=== PATIENT | male | born 1960 | race Caucasian/White ===

== ENCOUNTER 2016-05-21 04:34 | Inpatient (IN) | payer OTHER ==
[2016-05-21] VITALS (7 sets, daily range): BP systolic 116–165; BP diastolic 53–70
[~2016-05-21] VITALS: Ht 185.4 cm; Wt 122.0 kg
--- NOTE | 2016-05-21 09:15 | CONSULTATION REPORT ---
DATE OF CONSULTATION: 05/21/2016 CHIEF COMPLAINT: 1. Abdominal pain HISTORY OF PRESENT ILLNESS: The patient is a 55-year-old male who, approximately 1 week ago, developed severe right upper quadrant abdominal pain that doubled him over. Apparently this was associated with nausea, but no vomiting. Over a 4-hour period of time he got much better. He saw his primary care provider, who began a workup, that he has not completed yet. The patient developed further right upper quadrant abdominal pain. No fever, but felt chilled. He states that his urine has gotten darker, but it was cleared. Yesterday prior to admission, at noon, the pain worsened, radiating into his lower back. He went to [facility] in [place], where he felt that the wait was too long and then went to [place], where he was evaluated in their emergency department. In their emergency department, an ultrasound showed cholelithiasis, a slight thickening of the gallbladder wall, pericholecystic fluid, consistent with acute cholecystitis. His white count was 12.3, hemoglobin and hematocrit 14.2 and 42.8 respectively. His total bilirubin was 0.9, alkaline phosphatase 105, SGOT slightly elevated at 143, SGPT slightly elevated at 108. His lipase was elevated at 624. The hospital in [place] did not have beds available. [facility] were asked to accept the patient in transfer. He was transferred to [facility] and scheduled for urgent surgery. MEDICAL/SURGICAL HISTORY: Significant for lap gastric sleeve for weight reduction. He is status post tonsillectomy, adenoidectomy, bilateral knee arthroscopies, right open shoulder. He carries also a diagnosis of hypertension, diabetes, and hypercholesterolemia. He is followed by Dr. Umanzor in [place]. MEDICATIONS: 1. Include lisinopril 10 mg daily. 2. Omeprazole 20 mg daily. 3. Canagliflozin 100 mg daily. 4. Simvastatin 40 mg daily. ALLERGIES: 1. NONE. SOCIAL HISTORY: He is . He has 1 son, 2 daughters. They are in good health. He does not smoke, drinks alcohol on occasion. Drinks 2 cups of coffee per week. Does not use recreational drugs. Occupation: regional sales engineer. FAMILY HISTORY: Mother at age 60 from cancer, metastatic disease, primary unknown. Father , age 75, complications of CVAs. The patient was on dialysis for renal failure. One sister, who he does not know her whereabouts or her health. REVIEW OF SYSTEMS: No history of hepatitis, jaundice, rheumatic fever, blood transfusion, heart murmurs requiring antibiotics, or bleeding tendencies. A 12-point review of systems is negative. PHYSICAL EXAMINATION: GENERAL: The patient does not appear to be in acute distress. He is awake, alert , conversant. VITAL SIGNS: Blood pressure is 116/69, pulse 64, respirations 18, temperature is 97.3. HEENT: Normocephalic, atraumatic. Pupils equal and reactive. No scleral icterus. External auditory canals clear. No nasal septal defect or discharge. Throat is clear. Moist mucous membranes. NECK: Supple. No JVD, carotid bruit or adenopathy. LUNGS: Clear. No rales, rhonchi or wheezing. HEART: Regular rhythm. No murmurs. ABDOMEN: Nondistended. Hypoactive bowel sounds. The patient is tender to deep palpation in the right upper quadrant. No masses appreciable. EXTREMITIES: Full range of motion, actively, passively. No pretibial or ankle edema. SKIN: Warm and dry with no peripheral cyanosis, no evidence of icterus. LYMPHATICS: No cervical, supraclavicular, axillary, or groin adenopathy. NEUROLOGIC: The patient is grossly intact, with no focal motor neurological deficits. IMPRESSION: 1. Gallstone pancreatitis PLAN: Laparoscopic cholecystectomy. The procedure has been explained to the patient, including the potential risks of incisional site hernia, infection, conversion to open procedure, hemorrhage, transfusion, major ductal damage requiring rerouting of the small intestine to the liver, retained stone, exacerbation of pancreatitis, bile leak, damage to local structures secondary to his prior surgery, and inflammatory process of acute cholecystitis. The patient understands and agrees to proceed, and at this point all questions have been answered to his satisfaction. We will schedule him urgently.
--- NOTE | 2016-05-21 14:05 | DIAGNOSTIC IMAGING REPORT ---
PROCEDURE: XR INTRAOPERATIVE LAP JOS INDICATION: INTRAOP CHOLANGIOGRAM TECHNIQUE: Intraoperative fluoroscopy provided for Dr. Arenas performing an intraoperative cholangiogram following cholecystectomy. Total fluoroscopy time 2 minutes 38 seconds. Cumulative dose 66.4 mGy. COMPARISON: None. FINDINGS: Six intraoperative fluoroscopic spot images of the right upper quadrant of the abdomen. Initial views demonstrate blunting of the distal CBD without contrast in the small bowel consistent with the distal calculus. Subsequent images demonstrate balloon dilation and last image demonstrates of five contrast into the duodenum. IMPRESSION: 1. Distal CBD calculus with balloon dilation of the CBD. Last image demonstrates normal flow of contrast in the duodenum without residual filling defect.
[2016-05-21] MEDS ORDERED: INVOKANA100 MG (19:39)
[2016-05-21] MEDS ORDERED: LISINOPRIL10 MG PO (19:40)
[2016-05-21] MEDS ORDERED: SIMVASTATIN40 MG PO (19:42)
--- NOTE | 2016-05-21 23:07 | Consultation Report ---
Admission Admit Date 05/21/16 History Chief Complaint Acut cholecystits--SP Lap Brigitte. Underlying hypertension, AODM and hyperlipidemia History of Present Illness Dr. Arenas has asked hospitalist service to see pt. after cholcystectomy to help manage BP and DM. Social History Details of PMhx, P surgHx, Family Hx, Social Hx, Allergies, Meds recoreded in Dr. Arenass admit note and reviewed. Medications and Allergies Medications Current Medications Sig/Alana Start time Last Medication Dose Route Stop Time Status Admin Al Hydrox/Mg Hydrox/ 30 ML Q4H PRN 05/22 1530 AC 05/22 Simethicone PO 1530 Insulin Human Lispro See Dose ACHS 05/22 0730 AC Insts (1) SC Lisinopril 20 MG QHS 05/21 2200 AC 05/22 PO 2110 Meperidine HCl 25 MG Q1H PRN 05/21 2115 AC 05/23 IV 0747 Lactated Ringer's 1,000 ML ASDIRECTED 05/21 1115 AC 05/23 IV 0306 Ondansetron HCl 4 MG Q4H PRN 05/21 1115 AC IV Dose Instructions: (1)Insulin Human Lispro: LOW DOSE: ACCUCHECK AND SLIDING SCALE >>To change sliding scale DISCONTINUE this order and enter a NEW order. Thanks< Allergies Coded Allergies: NKA (05/21/16) Review of Systems Other pt. having sig pain following sjurgery. Able to ambulate. Taking po fluids without N or V. Physical Exam Vital Signs / I&Os Vital Signs Date Time Temp Pulse Resp B/P Pulse O2 O2 Flow FiO2 Ox Delivery Rate 05/21 2100 2.0 05/21 1829 78 18 165/70 98 0.0 05/21 1630 Nasal 2.0 Cannula 05/21 1556 79 18 130/58 97 Nasal 2.0 Cannula 05/21 1520 79 18 132/56 97 Nasal 2.0 Cannula 05/21 1457 97.5 74 18 135/57 96 Nasal 2.0 Cannula 05/21 1441 69 18 139/61 92 Nasal 2.0 Cannula 05/21 1429 65 15 130/62 98 Nasal 3.0 Cannula 05/21 1425 98.4 65 16 130/62 98 Nasal 3.0 Cannula 05/21 1420 72 10 136/57 97 Nasal 3.0 Cannula 05/21 1415 73 11 131/63 98 Nasal 3.0 Cannula 05/21 1410 71 12 127/62 97 Nasal 3.0 Cannula 05/21 1405 69 15 136/59 98 Nasal 3.0 Cannula 05/21 1400 66 18 130/66 98 Nasal 3.0 Cannula 05/21 1355 67 12 132/59 97 Nasal 3.0 Cannula 05/21 1350 71 16 120/47 98 Nasal 3.0 Cannula 05/21 1345 98.2 72 15 120/47 96 Nasal 3.0 Cannula 05/21 0545 Room Air 05/21 0533 97.3 64 18 116/69 97 Room Air General Appearance Alert, Oriented X3, Mild distress Lungs Clear to auscultation, Normal air movement Cardiovascular Regular rate and rhythm, Normal S1 and S2, No murmurs, gallops, rubs Abdomen mod tenderness upper abd. BTS decreased. Extremities No cyanosis, No clubbing, No edema LAB Results Laboratory Tests 05/21 0640 Chemistry Total Bilirubin (0.0 - 1.0 mg/dL) 2.4 Alkaline Phosphatase (46 - 116 U/L) 146 Lipase (73 - 393 U/L) 245 Hematology WBC (4.5 - 11.5 K/uL) 7.8 RBC (4.50 - 5.90 M/uL) 4.84 Hgb (13.5 - 17.5 gm/dL) 13.7 Hct (41.0 - 53.0 %) 41.9 MCV (80 - 100 fL) 87 MCH (26 - 34 pg) 28 RDW (11.6 - 14.8 %) 13.4 Neut % (Auto) (50 - 75 %) 79.9 Lymph % (Auto) (25 - 40 %) 9.8 [place] % (Auto) (3 - 14 %) 10.1 Eos % (Auto) (0 - 4 %) 0.2 Baso % (Auto) (0 - 2 %) 0 Plt Count, EDTA (150 - 400 K/uL) 192 PUBS MCHC (31 - 37 g/dL) 33 Assessment and Plan Problem List 1. Hypertension Plan will restart lisinopril atr 20 mg daily. 2. Type 2 diabetes mellitus, controlled Plan accucheheckd q 4h with low dose SS insulin.
[2016-05-22 03:50] VITALS: BP 134/71
[2016-05-22 06:20] VITALS: BP 130/70
[2016-05-22 09:58] VITALS: BP 121/70
[2016-05-22 14:00] VITALS: BP 136/73
--- NOTE | 2016-05-22 14:09 | OPERATIVE REPORT ---
DATE OF SURGERY: 05/21/2016 SURGEON: Nav Arenas III, MD ANIMAL TECHNICIAN: None. PREOPERATIVE DIAGNOSES: 1. Gallstone pancreatitis 2. Cholecystitis 3. Choledocholithiasis POSTOPERATIVE DIAGNOSES: 1. Gallstone pancreatitis 2. Cholecystitis 3. Choledocholithiasis PROCEDURES PERFORMED: 1. Laparoscopic lysis of adhesions 2. Fluoroscopic intraoperative cholangiogram 3. Common bile duct exploration 4. Cholecystectomy ANESTHESIA: General endotracheal. ESTIMATED BLOOD LOSS: 150 mL. FLUIDS: 700 mL lactated Ringer's. DRAINS: Mert-Hobbs drain 10 mm left behind. PATHOLOGY SPECIMEN: Gallbladder and contents. INDICATIONS: The patient is a 55-year-old male who approximately 6 years ago underwent a laparoscopic gastric sleeve for bariatric surgery. The patient does not know whether they did an ultrasound prior to his surgery or not. The patient presented to the emergency department in [place] with acute onset right upper quadrant abdominal pain, nausea, but no vomiting. No cata-colored stool or dark urine. His white count was 12.3, total bilirubin 0.9, alkaline phosphatase 105, SGPT elevated at 143, SGOT elevated at 108, and his lipase was 624. They did not have any beds, and he was transferred to [facility]. Repeat of his white count, 7.8, total bilirubin was 2.4, alkaline phosphatase was elevated at 146 as well, and lipase was down to 245. He was scheduled for surgery. SURGICAL FINDINGS: The patient's gallbladder was not visualized secondary to being encased in omentum. Eventually we were able to identify the gallbladder. It was thick walled and firmly adherent to the liver bed. Intraoperative cholangiogram showed complete obstruction of the distal common bile duct. Upon completion of the common bile duct exploration and ballooning, there was free flow of contrast material into the duodenum. SURGICAL TECHNIQUE: The patient was brought to the operating room and placed in the dorsal supine position, where he underwent general endotracheal anesthesia by the anesthesiology department. After proper anesthesia had taken effect, the patient 's abdomen was prepped using Betadine and draped in a sterile fashion. An infraumbilical incision was made, carried down through skin and subcutaneous tissue. A Veress needle was inserted through this site, into the abdominal cavity, and after ascertaining its appropriate position with suction irrigation, a pneumoperitoneum obtained using CO2 insufflation to approximately 14-15 mmHg pressure. Once this pressure was reached, the Veress needle was removed and replaced with a 10 mm trocar. The trocar was removed, leaving the sleeve behind, through which a laparoscopic video camera was introduced into the abdominal cavity. Under direct visualization, a separate 10 mm trocar was placed in the subxiphoid region, two 5 mm trocars were placed in the anterolateral abdominal wall, approximately 3-4 fingerbreadths below the costal margin. Each entered the abdominal cavity under direct visualization. The trocars were removed, leaving the sleeves behind, through which laparoscopic instrumentation was introduced into the abdominal cavity. The right lobe of the liver edge was obliterated by adherent omentum. We could not identify the gallbladder, and judiciously we took the omentum down very carefully, using a combination of hydrodissection, electrocautery dissection and blunt dissection. Eventually, we were able to identify the fundus of the gallbladder, which was grasped, retracted cephalad, and further dissection of the omentum off the gallbladder ensued. We were able then to visualize the entire gallbladder itself and carefully peel the duodenum off the neck of the gallbladder. We were able to circumferentially isolate the cystic artery and the cystic duct. A clip was placed on the cystic artery. A clip was placed at the junction of the neck of the gallbladder and the cystic duct. A small incision was made in the anterior surface of the cystic duct. Immediately, bilious material under pressure flowed from our cystotomy. The percutaneous cholangiogram catheter was then threaded through the anterior abdominal wall, into the cystic duct, clipped into position, and fluoroscopic intraoperative cholangiogram obtained with the aforementioned findings noted. The percutaneous cholangiogram catheter was retrieved from the cystic duct and the abdominal cavity. A separate 5 mm trocar was placed in the right upper quadrant. It entered the abdominal cavity under direct visualization. An introducer was introduced through the 5 mm trocar, along with the floppy tipped J-wire, which was introduced into the cystic duct and threaded into the common bile duct and into the duodenum under fluoroscopic guidance. The introducer was removed, leaving the J-wire in place, over which a 4 cm x 8 mm choledochal balloon was passed over the wire and partially into the duodenum. The balloon was insufflated using radiopaque material, and we were able to see the waisting of the ampulla. This has slowly expanded and dilated to 8 mm under fluoroscopic guidance. Once dilated completely, we were able to keep this in position for approximately 5 minutes. The balloon was deflated and brought back into the common bile duct and the cystic duct, where it was insufflated and intraoperative cholangiogram obtained, which showed free flow of contrast material into the duodenum with no gross evidence of obstruction. The balloon catheter was then retrieved from the cystic duct and the abdominal cavity. The distal cystic duct was clipped in continuity and divided. The cystic artery, having been clipped, was divided. The gallbladder was taken down from its bed in a retrograde fashion. Because the back wall of the gallbladder and the liver bed plane was obliterated, in the dissecting the gallbladder out, we entered the gallbladder and spilled a considerable number of stones. All stones were visible, and care was taken to remove them, as all were removed. The gallbladder was then removed from its bed in a retrograde fashion, placed in a sterile specimen container bag, retrieved from the abdominal cavity and sent to pathology. The gallbladder bed was inspected and irrigated copiously with warm normal saline and antibiotic solution and the irrigant suctioned out. Any small stones identified were retrieved using a combination of suction and grasping forceps. No further stones identified. A 10 mm Mert-Hobbs drain was placed beneath the bed of the gallbladder and in Morison's pouch and brought out through our most dependent trocar site in the right anterior lateral abdominal wall, secured using 3-0 nylon, trimmed to length and attached to bulb suction. The pneumoperitoneum was released and all trocars were removed from the abdominal cavity. All trocar sites approximated using 4-0 subdermal Polysorb and Steri-Strips. A sterile pressure occlusive dressings was placed over each site. The patient tolerated the procedure well and was extubated and transferred to the recovery room in stable condition. There were no intraoperative or anesthetic complications. It should be noted that dissection and identification of the gallbladder from its adhesions of omentum took at least 50% of the time of the surgery.
[2016-05-22 18:37] VITALS: BP 130/67
--- NOTE | 2016-05-22 18:39 | Progress Note ---
Subjective General Acute cholecystits--SP Lap Brigitte. Underlying hypertension, AODM and hyperlipidemia Dr. Arenas has asked hospitalist service to see pt. after cholcystectomy to help manage BP and DM. Pt feels well overall and is pleased that his sugars were better today. Denies nausea or vomiting. On popsicles for po intake. On sliding scale but requiring little coverage. Denies cp/palp/sob. Physical Exam Vital Signs / I&Os Vital Signs Date Time Temp Pulse Resp B/P Pulse O2 O2 Flow FiO2 Ox Delivery Rate 05/22 1400 98.4 86 18 136/73 95 Room Air 0.0 05/22 0958 98.1 84 18 121/70 95 Room Air 0.0 05/22 0620 98.1 79 18 130/70 94 Room Air 05/22 0350 99.0 81 20 134/71 98 Nasal Cannula 05/22 0211 2.0 05/22 0206 Nasal 2.0 Cannula 05/21 2310 97.9 64 20 152/53 90 05/21 2100 2.0 I&O 05/21 0800 05/21 1600 05/22 0000 Intake Total 1182 2891 Output Total 50 840 Balance 1132 2051 General Appearance Alert, Oriented X3, Cooperative, No acute distress Lungs Clear to auscultation Cardiovascular Regular rate and rhythm Abdomen Soft, mild tenderness. Extremities No edema LAB Results Laboratory Tests 05/22 0525 Chemistry Total Bilirubin (0.0 - 1.0 mg/dL) 5.1 Alkaline Phosphatase (46 - 116 U/L) 143 Lipase (73 - 393 U/L) 770 Hematology WBC (4.5 - 11.5 K/uL) 11.9 RBC (4.50 - 5.90 M/uL) 4.46 Hgb (13.5 - 17.5 gm/dL) 12.9 Hct (41.0 - 53.0 %) 39.2 MCV (80 - 100 fL) 88 MCH (26 - 34 pg) 29 RDW (11.6 - 14.8 %) 13.2 Neut % (Auto) (50 - 75 %) 87.5 Lymph % (Auto) (25 - 40 %) 4.8 [place] % (Auto) (3 - 14 %) 7.7 Eos % (Auto) (0 - 4 %) 0 Baso % (Auto) (0 - 2 %) 0 Plt Count, EDTA (150 - 400 K/uL) 174 PUBS MCHC (31 - 37 g/dL) 33 Assessment and Plan Problem List 1. Hypertension Plan Stable on current meds. 2. Type 2 diabetes mellitus, controlled Plan stable with current control.
[2016-05-22 21:31] VITALS: BP 130/71
[2016-05-23 03:03] VITALS: BP 134/75
[2016-05-23 06:12] VITALS: BP 117/66
[2016-05-23] MEDS ORDERED: HYCET1 ML PO (10:14)
--- NOTE | 2016-05-23 10:18 | Provider's Discharge Care Plan ---
Problem, Goal, Plan Problem List 1. Choledocholithiasis with acute cholecystitis with obstruction Goals: Improve disease control, Therapeutic intervention Instructions: Follow up as directed, Take meds as directed, TIM CARE INSTRUCTIONS
[2016-05-23 10:40] VITALS: BP 114/60
== END 2016-05-23 11:30 | disposition home or self-care (01) | DRG 417 ==
LOC: ACUTE2 SRH 04:34
PROVIDERS: ADMIT Specialist
PROC: 0F794DZ Dilation of Common Bile Duct with Intraluminal Device, Percutaneous Endoscopic Approach (ICD-10-PCS; principal; 2016-05-21 08:45)
PROC: 0FT44ZZ Resection of Gallbladder, Percutaneous Endoscopic Approach (ICD-10-PCS; principal; 2016-05-21 08:45)
PROC: BF101ZZ Fluoroscopy of Bile Ducts using Low Osmolar Contrast (ICD-10-PCS; principal; 2016-05-21 08:45)
PROC: 3E0234Z Introduction of Serum, Toxoid and Vaccine into Muscle, Percutaneous Approach (ICD-10-PCS; 2016-05-23)
DX: K80.60 Calculus of gallbladder and bile duct with cholecystitis, unspecified, without obstruction (principal); K85.10 Biliary acute pancreatitis without necrosis or infection; K66.0 Peritoneal adhesions (postprocedural) (postinfection); E11.9 Type 2 diabetes mellitus without complications; I10 Essential (primary) hypertension; Z23 Encounter for immunization
CPT/HCPCS: 29257; 50002; 60001; 70002; 80102; 80212; 80248; 80813; 82669; 82794; 82807; 82952; 83338; 83339; 83348; 83580; 83587; 83751; 83920; 83937; 83982; 84038; 84044; 85420; 85447; 90074; 90098; 90100; 92235; 92520; 92540; 92720; 95059

== ENCOUNTER 2016-05-25 07:01 | Outpatient (CLI) | payer OTHER ==
[~2016-05-25 07:01] MED LIST: HYCET1 ML PO; INVOKANA100 MG; LISINOPRIL10 MG PO; SIMVASTATIN40 MG PO
== END 2016-05-25 23:00 ==
LOC: LAB SRH 07:01
DX: K80.41 Calculus of bile duct with cholecystitis, unspecified, with obstruction (principal)
CPT/HCPCS: 90074; 90100; 92235